=== PATIENT | female | born 1950 | race Caucasian/White ===

== ENCOUNTER 2019-02-23 14:16 | Emergency (ER) | payer MEDICARE ==
[~2019-02-23] VITALS: Ht 165.1 cm; Wt 79.0 kg
[2019-02-23] MEDS ORDERED: PROPOFOL 10 MG/ML, 20ML ONE (14:26)
[2019-02-23] MEDS ORDERED: SODIUM CHLORIDE FLUSH 10ML SYR IVF ONE (14:30)
--- NOTE | 2019-02-23 14:50 | NUR ---
LATE ENTRY D/T PATIENT CARE: PT PRESENTS TO ED BY AMBULANCE, PT WAS PLAYING PICKLEBALL AND HAD MECHANICAL GLF INJURING RIGHT ANKLE. OBVIOUS DEFOMITY NOTED ON ARRIVAL, PT ABLE TO WIGGLE TOES OF RIGHT FOOT, CMS INTACT WITH +4 RT DORSALIS PULSE. SPLINT IN PLACE ON ARRIVAL. PT GIVEN 200MCG FENTANYL AND 4 MG ZOFRAN WAGE HAND. PT DENIES SYNCOPE/NEAR SYNCOPE, PT DENIES HEAD INJURY, PT DENIES CERVICAL PAIN/TENDERNESS. ALL MONITORS IN PLACE INCLUDING END TIDAL CO2 MONITOR. PT SEEN AND EXAMINED BY EDMD CYNTHIA. CONSENT SIGNED BY PATIENT FOR ANKLE REDUCTION WITH PROCEDURAL SEDATION. FAMILY AT BEDSIDE, PT AND FAMILY UPDATED WITH POC. CALL LIGHT IN REACH.
--- NOTE | 2019-02-23 15:00 | NUR ---
late entry d/t patient care: [facility] for procedural sedation. propofol 200mg vial pulled and handed to [facility] for administration.
--- NOTE | 2019-02-23 15:05 | NUR ---
REPORT GIVEN TO KAYLA DESIR AT BEDSIDE; MD MARIE AT BEDSIDE FOR ANKLE REDUCTION WITH PROCEDURAL SEDATION.
--- NOTE | 2019-02-23 15:19 | NUR ---
PROCEDURAL SEDATION IN PROCCESS REFER TO PROCEDURAL PACKET AND VITAL SHEET.
[2019-02-23] MEDS ORDERED: PROPOFOL 10 MG/ML, 20ML IVPush ONE (15:30)
--- NOTE | 2019-02-23 15:40 | NUR ---
REPORT FROM KARLEE GARZA, ASSUME CARE OF PT AT THIS TIME.
--- NOTE | 2019-02-23 15:40 | NUR ---
dr horowitz spoke with dr gill
[2019-02-23 15:53] VITALS: BP 146/74
--- NOTE | 2019-02-23 16:27 | NUR ---
DISCHARGE BY PEELED POTATO INSPECTORNABILA GARZA.
== END 2019-02-23 16:28 | disposition home or self-care (01) ==
LOC: ED 16:00
DX: S82.891A Other fracture of right lower leg, initial encounter for closed fracture (principal); E78.5 Hyperlipidemia, unspecified; I10 Essential (primary) hypertension; X50.1XXA Overexertion from prolonged static or awkward postures, initial encounter; Y93.9 Activity, unspecified; Y92.39 Other specified sports and athletic area as the place of occurrence of the external cause; Y99.8 Other external cause status
CPT/HCPCS: 27818; 73600; 99152; 99285; J2704

== ENCOUNTER 2019-02-25 16:10 | Day surgery (SDC) | payer MEDICARE ==
[~2019-02-25] VITALS: Ht 167.6 cm; Wt 82.3 kg
[2019-02-25] MEDS ORDERED: LACTATED RINGERS 1,000 ML IV SCH (17:03)
[2019-02-25 17:06] VITALS: BP 117/74
[2019-02-25 17:11] VITALS: BP 117/74
[2019-02-25] MEDS ORDERED: ACETAMINOPHEN 500 MG TABLET ONE (17:23)
[2019-02-25] MEDS ORDERED: GABAPENTIN 300 MG CAPSULE ONE (17:23)
[2019-02-25] MEDS ORDERED: ACETAMINOPHEN 500 MG TABLET PO ONE (17:30)
[2019-02-25] MEDS ORDERED: GABAPENTIN 300 MG CAPSULE PO ONE (17:30)
[2019-02-25] MEDS ORDERED: LOSA100T14 PO (17:31)
[2019-02-25] MEDS ORDERED: SIMV20TA3 PO (17:31)
[2019-02-25 17:53] LABS: ALANINE AMINOTRANSFERASE 30 U/L (12-78); ALBUMIN 3.8 g/dL (3.4-5.0); ANION GAP 7 mmol/L (5-15); CALCIUM 9.8 mg/dL (8.5-10.1); CHLORIDE 110 mmol/L (98-107); CREATININE 0.81 mg/dL (0.55-1.02)
[2019-02-25 17:55] LABS: ALKALINE PHOSPHATASE 58 U/L (45-117); BILIRUBIN,TOTAL 1.5 mg/dL (0.2-1.0); TOTAL PROTEIN 7.1 g/dL (6.4-8.2)
[2019-02-25] MEDS ORDERED: BUPIVACAINE/PF 0.5% ONE (17:55)
[2019-02-25] MEDS ORDERED: EPINEPHRINE 1 MG/ML, 1ML ONE (17:55)
[2019-02-25] MEDS ORDERED: FENTANYL PF 250 MCG/5ML ONE (18:27)
[2019-02-25] MEDS ORDERED: MIDAZOLAM 1 MG/ML, 2ML ONE (18:27)
[2019-02-25] MEDS ORDERED: PROMETHAZINE 25 MG/ML, 1ML IV PRN (19:00)
[2019-02-25] MEDS ORDERED: LORazepam 2 MG/ML, 1ML IVPush PRN (19:00)
[2019-02-25] MEDS ORDERED: OXYcodone 5 MG/5 ML ORAL.SOL UDC PO PRN (19:00)
[2019-02-25] MEDS ORDERED: PROMETHAZINE 25 MG SUPP PR PRN (19:00)
[2019-02-25] MEDS ORDERED: HYDROmorphone 2 MG/ML, 1ML IVPush PRN (19:00)
[2019-02-25] MEDS ORDERED: FENTANYL PF 100 MCG/2ML IV PRN (19:00)
[2019-02-25] MEDS ORDERED: ONDANSETRON 2MG/ML, 2ML IV PRN (19:00)
[2019-02-25] MEDS ORDERED: ONDANSETRON ODT 8 MG PO PRN (19:00)
[2019-02-25] MEDS ORDERED: PROPOFOL 10 MG/ML, 20ML ONE (19:02)
[2019-02-25] MEDS ORDERED: DEXAMETHASONE 4 MG/ML, 1ML ONE (19:02)
[2019-02-25] MEDS ORDERED: CEFAZOLIN 1,000 MG ONE (19:02)
[2019-02-25] MEDS ORDERED: ONDANSETRON 2MG/ML, 2ML ONE (19:02)
[2019-02-25] MEDS ORDERED: BUPIVACAINE/EPI 0.5% 1:200K INFIL ONE (19:05)
[2019-02-25] MEDS ORDERED: OXYcodone 5 MG/5 ML ORAL.SOL UDC ONE (19:40)
[2019-02-25] MEDS ORDERED: FENTANYL PF 100 MCG/2ML ONE (19:40)
== END 2019-02-25 22:30 | disposition home or self-care (01) ==
LOC: OR 16:10 → 4NE 20:45 → OR 22:30
PROVIDERS: ATTEND Orthopaedic Surgery
DX: S82.851A Displaced trimalleolar fracture of right lower leg, initial encounter for closed fracture (principal); S93.431A Sprain of tibiofibular ligament of right ankle, initial encounter; Z88.0 Allergy status to penicillin; W19.XXXA Unspecified fall, initial encounter; Y93.89 Activity, other specified; Y92.89 Other specified places as the place of occurrence of the external cause; Y99.8 Other external cause status
CPT/HCPCS: 27822; 27829; 36415; 73600; 80053; C1713; J0171; J0690; J1100; J2250; J2405; J2704; J3010; J7120; 76000; G0378